=== PATIENT | male | born 1975 | race Caucasian/White ===

== ENCOUNTER 2018-08-26 10:43 | Emergency (ER) | payer OTHER ==
[2018-08-26 10:53] VITALS: BMI 24.3
--- NOTE | 2018-08-26 11:34 | ED PDOC ---
HPI: Male Pain Time Seen by Provider: 08/26/18 10:51 Chief Complaint (Nursing): Male Genitourinary Chief Complaint (Provider): Male Genitourinary History Per: Patient History/Exam Limitations: no limitations Onset/Duration Of Symptoms: Days Current Symptoms Are (Timing): Still Present Additional Complaint(s): 43 year old male with PMHx of prostitis presents to the ED complaining he is unable to urine since last night with only few drops of urine. This morning, he has the urge to urinate with distended bladder. At present, patient denies fever or dysuria. PMD: no family provider Past Medical History Reviewed: Historical Data, Nursing Documentation, Vital Signs Vital Signs: Last Vital Signs Temp 97.1 F L 08/26/18 10:51 Pulse 118 H 08/26/18 10:51 Resp BP 181/126 H 08/26/18 10:51 Pulse Ox 98 08/26/18 10:51 - Medical History PMH: Denies: Chronic Kidney Disease Other PMH: prosthesis - Family History Family History: States: Unknown Family Hx - Social History Current smoker - smoking cessation education provided: No Alcohol: Social Drugs: Denies - Home Medications Home Medications: Ambulatory Orders Medication Instructions Recorded Sulfamethoxazole/Trimethoprim 1 tab PO BID #20 tab 08/26/18 [Bactrim DS 800 mg-160 mg] - Allergies Allergies/Adverse Reactions: Allergies Allergy/AdvReac Type Severity Reaction Status Date / Time No Known Allergies Allergy Verified 08/26/18 10:53 Review of Systems ROS Statement: Except As Marked, All Systems Reviewed And Found Negative Constitutional: Negative for: Fever Genitourinary Male: Positive for: Other (Difficulty urinating ). Negative for: Dysuria Physical Exam - Reviewed Nursing Documentation Reviewed: Yes Vital Signs Reviewed: Yes - Physical Exam Appears: Positive for: Well, Non-toxic, No Acute Distress Head Exam: Positive for: ATRAUMATIC, NORMAL INSPECTION, NORMOCEPHALIC Skin: Positive for: Normal Color, Warm, Dry. Negative for: Rash Eye Exam: Positive for: EOMI, Normal appearance, PERRL Neck: Positive for: Normal, Painless ROM, Supple. Negative for: Decreased ROM Cardiovascular/Chest: Positive for: Regular Rate, Rhythm. Negative for: Murmur Respiratory: Positive for: Normal Breath Sounds. Negative for: Decreased Breath Sounds Gastrointestinal/Abdominal: Positive for: Distended. Negative for: Tenderness Back: Positive for: Normal Inspection. Negative for: L CVA Tenderness, R CVA Tenderness Extremity: Positive for: Normal ROM. Negative for: Tenderness, Pedal Edema, Deformity Neurologic/Psych: Positive for: Alert, Oriented (x3). Negative for: Motor/Sensory Deficits - ECG O2 Sat by Pulse Oximetry: 98 (RA) Pulse Ox Interpretation: Normal Medical Decision Making Medical Decision Making: Time: 1051 Impression: r/o urinary obstruction. Obtain bladder scan and place milan catheter as necessary Scribe Attestation: Documented by Genoveva Monson, acting as a scribe for Ramón Resendez MD Provider Scribe Attestation: All medical record entries made by the Scribe were at my direction and personally dictated by me. I have reviewed the chart and agree that the record accurately reflects my personal performance of the history, physical exam, medical decision making, and the department course for this patient. I have also personally directed, reviewed, and agree with the discharge instructions and disposition. Bladder scan revealed 468 ml in bladder 16 Fr milan cath placed for urinary retention. Mild resistance when placing milan. Obstruction most likely due to outlet obstruction/prostatic hypertrophy and Nyquil. Total clear randi urine 800 ml Will dc home with leg bag, urology follow up and Bactrim DS bid until seen by urology Disposition - Clinical Impression Clinical Impression: Urinary retention - Patient ED Disposition Is Patient to be Admitted: No Counseled Patient/Family Regarding: Studies Performed, Diagnosis, Need For Followup, Rx Given - Disposition Referrals: Levi Weathers MD [Medical Doctor] - Disposition: Routine/Home Disposition Time: 11:47 Condition: FAIR Prescriptions: Sulfamethoxazole/Trimethoprim [Bactrim DS 800 mg-160 mg] 1 tab PO BID #20 tab Instructions: Urinary Retention Forms: [employer] ([place]ish)
[2018-08-26 12:15] VITALS: RESP 18; TEMP 99.2
[2018-08-26 12:22] LABS: URINE BACTERIA RARE (<OCC)
[2018-08-26 12:24] LABS: URINE BILIRUBIN NEGATIVE (NEGATIVE); URINE BLOOD MODERATE (NEGATIVE); URINE CLARITY CLEAR (Clear); URINE COLOR STRAW (YELLOW); URINE GLUCOSE (UA) NEG (NEGATIVE); URINE LEUKOCYTE ESTERASE NEG Leu/uL (Negative); URINE PROTEIN NEGATIVE (NEGATIVE); URINE UROBILINOGEN 0.2-1.0 mg/dL (0.2-1.0)
[2018-08-26 14:34] VITALS: BP 160/101; PULSE 83; O2SAT 96
== END 2018-08-26 14:20 | disposition home or self-care (01) ==
LOC: H.ER 10:43
DX: R33.9 Retention of urine, unspecified (principal)